=== PATIENT | female | born 1990 | race African-American/Black ===

== ENCOUNTER 2017-01-19 15:20 | Emergency (ER) | payer OTHER ==
[~2017-01-19] VITALS: Ht 160 cm; Wt 95.3 kg
[~2017-01-19 15:20] MED LIST: CIPROFLOXACIN500 M1 PO; ERYTHROMYCIN E3.5 G1 OPHTHALMIC; FLAGYL500 MG PO; HYDROXYZINE HCL25 M1 PO; IBUPROFEN 800800 MG PO; KEFLEX500 MG PO; MEDROLDOSEPACK PO; MIRENA1 EACH IY; VENTOLIN HFA 1818 GM INH
[2017-01-19 15:50] LABS: HEMATOCRIT 36.1 % (37.0-47.0); HEMOGLOBIN 12.5 gm/dL (12.0-15.0); MCH 30.7 pg (26.0-34.0); MCHC 34.7 g/dL (28.0-37.0); MCV 88.4 fL (80.0-100.0); PLATELET COUNT 313 thou/uL (150-400); RBC 4.09 mil/uL (4.20-5.00); RDW 12.8 % (10.5-14.5); WBC 8.4 thou/uL (4.0-11.0)
[2017-01-19 15:51] LABS: MANUAL DIFF YES
[2017-01-19] MEDS ORDERED: TESSALON PERLE100 MG PO (15:53)
[2017-01-19] MEDS ORDERED: NAPROSYN500 MG PO (15:53)
[2017-01-19 16:07] LABS: CALCIUM 8.9 mg/dL (8.5-10.1); CREATININE 0.8 mg/dL (0.6-1.3); POTASSIUM 3.9 mmol/L (3.5-5.1)
[2017-01-19 16:11] LABS: ALBUMIN 3.3 g/dL (3.4-5.0); TOTAL BILIRUBIN 0.2 mg/dL (<0.1-1.0); TOTAL PROTEIN 7.4 g/dL (6.4-8.2)
[2017-01-19 16:11] LABS: URINE BILIRUBIN NEGATIVE (Negative); URINE BLOOD 1+ (Negative); URINE COLOR YELLOW; URINE GLUCOSE-RANDOM* NEGATIVE (Negative); URINE KETONES NEGATIVE (Negative); URINE LEUKOCYTES-REFLEX NEGATIVE (Negative); URINE PROTEIN (DIPSTICK) NEGATIVE (Negative); URINE UROBILINOGEN 0.2 E.U./dl (0.2-1.0)
[2017-01-19 16:12] LABS: TOTAL CELL COUNT 100
[2017-01-19 16:13] LABS: ANISOCYTOSIS 1+; POLYCHROMASIA OCCASIONAL
[2017-01-19 16:20] LABS: CASTS None Seen /LPF (None Seen); CRYSTALS None Seen /LPF (None Seen); SQUAMOUS >10 Many /LPF (0-3); URINE RBC 3-10 Few /HPF (0-2); URINE WBC-REFLEX 0-5 Rare /HPF (0-5)
[2017-01-19 16:45] VITALS: BP 147/93
== END 2017-01-19 17:04 | disposition home or self-care (01) ==
LOC: ER 15:20
PROVIDERS: Emergency Medicine
DX: B34.9 Viral infection, unspecified (principal); J45.909 Unspecified asthma, uncomplicated; F17.210 Nicotine dependence, cigarettes, uncomplicated; F12.10 Cannabis abuse, uncomplicated

== ENCOUNTER 2019-05-29 15:51 | Emergency (ER) | payer OTHER ==
[~2019-05-29] VITALS: Ht 160 cm; Wt 99.8 kg
[~2019-05-29 15:51] MED LIST changes: +NAPROSYN500 MG PO; +TESSALON PERLE100 MG PO
[2019-05-29 16:15] LABS: URINE BILIRUBIN NEGATIVE (Negative); URINE BLOOD TRACE (Negative); URINE CLARITY CLEAR; URINE COLOR YELLOW; URINE GLUCOSE-RANDOM* NEGATIVE (Negative); URINE KETONES NEGATIVE (Negative); URINE PROTEIN (DIPSTICK) NEGATIVE (Negative); URINE UROBILINOGEN 0.2 E.U./dl (0.2-1.0)
[2019-05-29 16:16] LABS: URINE LEUKOCYTES-REFLEX 1+ (Negative); URINE NITRITE-REFLEX POSITIVE (Negative)
[2019-05-29 16:25] LABS: BACTERIA-REFLEX >30 Many /HPF (None Seen); CASTS None Seen /LPF (None Seen); CRYSTALS None Seen /LPF (None Seen); SQUAMOUS 0-3 Few /LPF (0-3); URINE RBC 0-2 Rare /HPF (0-2); URINE WBC-REFLEX >25 Many /HPF (0-5)
[2019-05-29] MEDS ORDERED: PHENAZOPYRIDIN200 M2 PO (16:29)
[2019-05-29] MEDS ORDERED: BACTRIM DS TAB1 EACH PO (16:29)
[2019-05-29 16:37] VITALS: BP 138/74
== END 2019-05-29 16:39 | disposition home or self-care (01) ==
LOC: ER 15:51
PROVIDERS: Emergency Medicine
DX: N39.0 Urinary tract infection, site not specified (principal); J45.909 Unspecified asthma, uncomplicated; F17.210 Nicotine dependence, cigarettes, uncomplicated

== ENCOUNTER 2019-09-30 14:41 | Emergency (ER) | payer OTHER ==
[~2019-09-30] VITALS: Ht 162.6 cm; Wt 104.3 kg
[~2019-09-30 14:41] MED LIST changes: +BACTRIM DS TAB1 EACH PO; +PHENAZOPYRIDIN200 M2 PO
[2019-09-30 15:04] LABS: URINE BILIRUBIN NEGATIVE (Negative); URINE BLOOD TRACE (Negative); URINE CLARITY CLEAR; URINE COLOR YELLOW; URINE GLUCOSE-RANDOM* NEGATIVE (Negative); URINE KETONES NEGATIVE (Negative); URINE LEUKOCYTES-REFLEX NEGATIVE (Negative); URINE NITRITE-REFLEX NEGATIVE (Negative); URINE PROTEIN (DIPSTICK) NEGATIVE (Negative); URINE UROBILINOGEN 0.2 E.U./dl (0.2-1.0)
[2019-09-30] MEDS ORDERED: IBUPROFEN 600600 M1 PO (16:13)
[2019-09-30 16:24] VITALS: BP 126/79
== END 2019-09-30 16:24 | disposition home or self-care (01) ==
LOC: ER 14:41
PROVIDERS: Emergency Medicine
DX: S39.012A Strain of muscle, fascia and tendon of lower back, initial encounter (principal); F17.210 Nicotine dependence, cigarettes, uncomplicated; J45.909 Unspecified asthma, uncomplicated; X58.XXXA Exposure to other specified factors, initial encounter; Y93.89 Activity, other specified; Y92.89 Other specified places as the place of occurrence of the external cause; Y99.9 Unspecified external cause status

== ENCOUNTER 2021-08-29 19:30 | Emergency (ER) | payer OTHER ==
[~2021-08-29] VITALS: Ht 162.6 cm; Wt 99.8 kg
[~2021-08-29 19:30] MED LIST changes: +IBUPROFEN 600600 M1 PO
[2021-08-29 19:35] VITALS: BP 157/86
== END 2021-08-29 19:51 | disposition home or self-care (01) ==
LOC: ER 19:30
DX: S51.852A Open bite of left forearm, initial encounter (principal); J45.909 Unspecified asthma, uncomplicated; F17.210 Nicotine dependence, cigarettes, uncomplicated; W54.0XXA Bitten by dog, initial encounter; Y93.89 Activity, other specified; Y92.89 Other specified places as the place of occurrence of the external cause; Y99.8 Other external cause status